=== PATIENT | female | born 1980 | race Caucasian/White ===

== ENCOUNTER → 2023-10-27 | Outpatient (CLI) | payer BC ==
--- NOTE | 2023-10-27 10:32 | USB ---
Reason for Exam: Clinical finding. Patient History: Menarche at age 10. First Full-Term at age 15. Maternal aunt had breast cancer, age 30. Sister had breast cancer, age 45. Sister had breast cancer under age 50. Risk Values: Xuan 5 year model risk: 3.9%. NCI Lifetime model risk: 38.1%. Technique: Method: Whole Breast Handheld. Prior Study Comparison: 11/01/2013 Bilateral Screening Mammogram, [facility]. Findings: The whole breast of the left breast, the axilla of the left breast and the retroareolar of the left breast were scanned. There is a 0.9 x 0.7 x 0.4 cm hypoechoic area within the 12:00 position 7 cm from nipple. This potentially could correlate with the palpable region size is small. This is not a simple cyst, biopsy is warranted. Overall Assessment: Suspicious, BI-RAD 4 Management: Ultrasound Core Biopsy of the left breast. A clinical breast exam by your physician is recommended on an annual basis and results should be correlated with mammographic findings. This exam should not preclude additional follow-up of suspicious palpable abnormalities. Results were given to the patient verbally at the time of exam. Electronically signed and approved by: Cam Casiano D.O. Radiologis
--- NOTE | 2023-10-27 10:33 | MM ---
Reason for Exam: Clinical finding. Last mammogram was performed 10 year(s) and 0 month(s) ago. Indicated Problems: Lump or thickening of the left side for 9 Month(s). Patient History: Menarche at age 10. First Full-Term at age 15. Maternal aunt had breast cancer, age 30. Sister had breast cancer, age 45. Sister had breast cancer under age 50. Last menstrual period: 09/21/2023 Risk Values: Xuan 5 year model risk: 3.9%. NCI Lifetime model risk: 38.1%. Prior Study Comparison: 11/01/2013 Bilateral Screening Mammogram, [facility]. Tissue Density: The breast tissue is heterogeneously dense. This may lower the sensitivity of mammography. Findings: Analyzed By CAD. There is vague increased density in the upper outer aspect of the left breast extending towards the chest wall. This is nonspecific. Discrete suspicious abnormality is not identified. However, this is in the region of the patient's palpable abnormality. Additional evaluation with ultrasound is recommended. No suspicious groups of microcalcifications, spiculated or lobular masses, architectural distortion or other secondary signs of malignancy are mammographically apparent. Overall Assessment: Incomplete: need additional imaging evaluation, BI-RAD 0 Management: Diagnostic Breast Ultrasound of the left breast. A negative mammogram report should not preclude additional follow up of suspicious palpable abnormalities. Patient should continue monthly self breast exam. A clinical breast exam by your physician is recommended on an annual basis and results should be correlated with mammographic findings. Electronically signed and approved by: Cam Casiano D.O. Radiologis
== END | disposition home or self-care (01) ==
LOC: RADMAMWWP 08:50
PROVIDERS: ATTEND Obstetrics & Gynecology
DX: N63.20 Unspecified lump in the left breast, unspecified quadrant (principal); R92.333 Mammographic heterogeneous density, bilateral breasts; Z80.3 Family history of malignant neoplasm of breast
CPT/HCPCS: 77062; 77066

== ENCOUNTER → 2023-11-15 | Day surgery (SDC) | payer BC ==
--- NOTE | 2023-11-21 07:46 | MM ---
Reason for Exam: Additional evaluation requested from prior study. Last screening mammogram was performed less than 1 month ago. Patient History: Menarche at age 10. First Full-Term at age 15. Maternal aunt had breast cancer, age 30. Sister had breast cancer, age 45. Sister had breast cancer under age 50. Risk Values: Xuna 5 year model risk: 3.9%. NCI Lifetime model risk: 38.1%. Prior Study Comparison: 11/01/2013 Bilateral Screening Mammogram, [facility]. 10/27/2023 Left US breast LT, [facility]. 10/27/2023 Bilateral MG 3D diag mammo w/cad TEJA, [facility]. Tissue Density: Left: The breast tissue is heterogeneously dense. This may lower the sensitivity of mammography. Pathology Description: Location: 12 o'clock. Needle Type: Celero Cores: 3 Gauge: 12 The procedure of ultrasound guided core biopsy was explained to the patient. Benefits, alternatives, and risks were discussed. An informed consent was then obtained. The patient was placed in supine positioning for imaging and for the procedure. The overlying skin was prepped and draped in usual sterile fashion. Lidocaine buffered with bicarbonate was used as anesthetic into the skin and subcutaneous tissue up to area of concern in the left 12:00 breast. A maureen was made with surgical scalpel. Under ultrasound guidance, a 12-gauge vacuum assisted biopsy gun device was used to obtain 3 core samples. Following this, a biopsy clip was left in lesion. The patient tolerated the procedure well without any immediate complication. The patient was kept in the radiology department for short stay after the procedure and then discharged home in stable condition. Postprocedure mammogram: The patient was transferred to mammography for physician ordered post procedure mammogram for clip placement verification. Impression: Successful, uncomplicated ultrasound guided core biopsy of area of concern in the left 12:00 breast, full pathology results to follow. Pathology Results: Result: Benign, Fibroadenoma. LEFT BREAST, TWELVE O'CLOCK, ULTRASOUND GUIDED CORE BIOPSY: Benign breast tissue having features compatible with fibroadenoma, if a mass lesion is represented. Correlation with imaging studies is suggested. Overall Assessment: Benign Assessment: MG diagnostic mammo LT wo CAD. - Left: Benign, BI-RAD 2. Management: Diagnostic Mammogram of the left breast in 6 months. Electronically signed and approved by: Alejandro Blackman M.D. Radiologis
== END ==
LOC: RADUSWWP 07:47
PROVIDERS: ATTEND Surgery
DX: R92.8 Other abnormal and inconclusive findings on diagnostic imaging of breast (principal); Z80.3 Family history of malignant neoplasm of breast
CPT/HCPCS: 88305; 77065; 19083; A4648